=== PATIENT | male | born 1995 | race Caucasian/White ===

== ENCOUNTER 2016-11-02 07:41 | Emergency (ER) | payer BC, OTHER ==
[~2016-11-02] VITALS: Ht 170.2 cm; Wt 73.4 kg
[2016-11-02 07:43] VITALS: TEMP 36.3; Ht 170.2 cm; Wt 73.4 kg
[2016-11-02] MEDS ORDERED: SODIUM CHLORIDE 0.9% 1000ML 1,000 ML IV STA (08:22)
[2016-11-02 09:04] LABS: BASO % 0.8 %; BASO ABS # 0.04 K/uL (0-0.2); COMPLETE YES; EOS % 7.4 %; HEMATOCRIT 46.6 % (42-52); IG% 0.2 %; LYMPH % 49.7 %; LYMPH ABS # 2.54 K/uL (1.2-3.4); MEAN CELL VOLUME 85.3 fL (80-100); MEAN CORPUSCULAR HEMOGLOBIN 29.7 pg (25-34); MEAN CORPUSCULAR HGB CONC 34.8 g/dl (32-36); MEAN PLATELET VOLUME 11.9 fL (7.4-10.4); NEUT % 34.9 %; PLATELET COUNT 173 K/uL (130-400); RED BLOOD COUNT 5.46 M/uL (4.7-6.1); WHITE BLOOD COUNT 5.11 K/uL (4.8-10.8)
[2016-11-02 09:21] LABS: BUN/CREATININE RATIO 21.7 (10-20); CALCIUM 8.8 mg/dl (8.5-10.1); CREATININE 0.88 mg/dl (0.60-1.40)
[2016-11-02 10:33] LABS: MANUAL MICROSCOPIC REQUIRED? NO; REVIEW REQ? NO; URINE APPEARANCE CLEAR (CLEAR); URINE BILIRUBIN NEG (NEG); URINE COLOR YELLOW; URINE NITRITE NEG (NEG); URINE SPECIFIC GRAVITY 1.021 (1.000-1.030); UROBILINOGEN NEG (NEG)
--- NOTE | 2016-11-02 10:58 | DIAGNOSTIC IMAGING REPORT ---
KUB CLINICAL HISTORY: Dysuria. FINDINGS: 2 AP abdominal radiographs are obtained. No prior studies are available for comparison at the time of dictation. There is a nonobstructed abdominal bowel gas pattern. Moderate colonic fecal retention is observed. There is no radiographic evidence of nephrolithiasis. Small phleboliths are seen in the left hemipelvis. The bony structures appear intact. IMPRESSION: 1. There is no radiographic evidence of nephrolithiasis. 2. Nonobstructed abdominal bowel gas pattern. Electronically signed by: Steve Araujo M.D. 11/02/2016 10:56 AM Dictated Date/Time: 11/02/2016 10:55 AM
--- NOTE | 2016-11-02 11:24 | DIAGNOSTIC IMAGING REPORT ---
ULTRASOUND KIDNEYS AND BLADDER CLINICAL HISTORY: Dysuria. COMPARISON STUDY: KUB dated 11/02/2016. TECHNIQUE: Real-time, grayscale, and color flow sonography of the kidneys and bladder is performed. Images are reviewed in the transverse and longitudinal planes. FINDINGS: Kidneys: The kidneys are normal in size and echotexture. The right kidney measures 11.2 x 5.0 x 6.4 cm and the left kidney measures 10.4 x 5.9 x 6.1 cm. There is no hydronephrosis. No shadowing renal calculi are identified. There is no sonographic evidence of contour deforming renal mass lesion. No perinephric fluid is identified. Bladder: The partially decompressed bladder is normal as visualized. A left ureteral jet was seen. IMPRESSION: Unremarkable sonographic assessment of the kidneys and bladder. Electronically signed by: Steve Araujo M.D. 11/02/2016 11:21 AM Dictated Date/Time: 11/02/2016 11:20 AM
[2016-11-02 11:28] VITALS: BP 109/66; PULSE 61; O2SAT 100
--- NOTE | 2016-11-02 11:54 | EMERGENCY ROOM VISIT NOTE ---
ED Visit Note First contact with patient: 07:51 CHIEF COMPLAINT: Burning on urination times one week HISTORY OF PRESENT ILLNESS: Patient is a 21-year-old white male who presents the emergency department for evaluation of burning on urination times one week. He has a remote history of kidney stones, but states that this does not feel similar. He states that he feels like he is "trying to push out a kidney stone. " He notes a sensation of pressure and burning in his urethra, noted more toward the end of his stream. He has subjectively noted that his urine looks cloudy, but denies any hematuria. No upper abdominal pain flank pain, nausea or vomiting. He denies any penile discharge. No penile pain, no testicular pain or swelling. He reports that he is in a monogamous relationship with one female partner. They do not use any barrier methods for protection. He does not feel that he has had at risk for any sexually transmitted infections. He has a remote history of epididymitis. He denies any pain at the present time. No fever or chills. REVIEW OF SYSTEMS: Review of systems as per HPI. All other systems reviewed were negative. At least 6 systems reviewed. PMH: Electronic medical records are reviewed and summarized as above/below. See Problem List. SOCIAL HISTORY: Patient lives at home. Employed. Uses chewing tobacco. PHYSICAL EXAM: Vital Signs: Reviewed Nurse's notes. CONSTITUTIONAL: Patient is a well-appearing 21-year-old white male who is awake and alert and in no acute distress. EYES: Pupils equal, round, reactive to light and accommodation. EOMs intact without nystagmus. Sclera are anicteric. ENT: Tympanic membranes intact, with normal landmarks. External canals are clear. Oral and nasopharynx are clear. Mucous membranes are moist, no lesions , tongue and gums appear normal. NECK: No bruits auscultated. Supple without lymphadenopathy. No thyromegaly. No meningeal signs. Full active range of motion without discomfort. CARDIOVASCULAR: Regular rate and rhythm, with normal S1 and S2, no murmur or gallop or rub is heard. No carotid bruits auscultated. No JVD. Peripheral pulses easily palpable. RESPIRATORY: Breath sounds equal and clear to auscultation without wheezes, rales, or rhonchi heard. Full and equal chest expansion without accessory muscle use or retractions. ABDOMEN: Bowel sounds are present. Abdomen is soft, nontender and nondistended. No guarding, rebound or rigidity. : No penile or scrotal erythema, rashes or lesions noted. Penis is nontender to palpation. No discharge noted. Testicles are nontender without palpable masses. INTEGUMENTARY: No lesions or rash, normal skin turgor. LYMPH: No lymphadenopathy. EMERGENCY DEPARTMENT COURSE: The patient was seen and assessed as above. His old records are reviewed. IV access was obtained and he was hydrated with normal saline solution. CBC, BMP and urinalysis were collected. Urethral swab for Chlamydia and gonorrhea was also obtained. Laboratory studies revealed a normal white count and H&H. Electrolytes and renal functions are without significant abnormality. Urinalysis only noted trace leukocyte esterase intend to 30 white blood cells. No bacteria. No nitrates or blood. KUB was obtained and did not demonstrate any stone or bowel obstruction. Retroperitoneal ultrasound did not demonstrate any hydronephrosis or shadowing calculi. Patient presents to the emergency department for evaluation of a sensation of dysuria, which he describes as a feeling of a urethral stone. His urinalysis is fairly benign with trace leuk esterase and white blood cells noted. It is not overly indicative of a urethritis, cystitis or UTI. His exam is not consistent with renal colic. exam did not demonstrate any abnormalities, although epididymitis, orchitis and testicular torsion were all considered. He does not consider himself high risk for an STI, however a swab for Chlamydia/ gonorrhea was obtained and is pending. Differential diagnoses also entertained included a passed stone and a urethral stricture. Asthmatic are held pending the results of his vomit. He was educated on the worrisome signs or symptoms for which she should return to the emergency department. He was advised to increase his clear fluid intake and to follow up with his PCP or urology for further care and management. KUB CLINICAL HISTORY: Dysuria. FINDINGS: 2 AP abdominal radiographs are obtained. No prior studies are available for comparison at the time of dictation. There is a nonobstructed abdominal bowel gas pattern. Moderate colonic fecal retention is observed. There is no radiographic evidence of nephrolithiasis. Small phleboliths are seen in the left hemipelvis. The bony structures appear intact. IMPRESSION: 1. There is no radiographic evidence of nephrolithiasis. 2. Nonobstructed abdominal bowel gas pattern. ULTRASOUND KIDNEYS AND BLADDER CLINICAL HISTORY: Dysuria. COMPARISON STUDY: KUB dated 11/02/2016. TECHNIQUE: Real-time, grayscale, and color flow sonography of the kidneys and bladder is performed. Images are reviewed in the transverse and longitudinal planes. FINDINGS: Kidneys: The kidneys are normal in size and echotexture. The right kidney measures 11.2 x 5.0 x 6.4 cm and the left kidney measures 10.4 x 5.9 x 6.1 cm. There is no hydronephrosis. No shadowing renal calculi are identified. There is no sonographic evidence of contour deforming renal mass lesion. No perinephric fluid is identified. Bladder: The partially decompressed bladder is normal as visualized. A left ureteral jet was seen. IMPRESSION: Unremarkable sonographic assessment of the kidneys and bladder. Problem List Medical Problems: (1) Concussion Status: Resolved (2) Facial contusion Status: Resolved (3) Injury of jaw Status: Resolved (4) Kidney stone Status: Resolved (5) Left knee pain Status: Resolved (6) Left knee pain Status: Resolved (7) Tonsillitis Status: Resolved Surgical Problems: (1) No significant past surgical history Status: Chronic Current/Historical Medications No Active Prescriptions or Reported Meds Allergies Coded Allergies: Cephalexin (Unverified Allergy, Mild, RASH, 11/02/16) Vital Signs Date Time Temp Pulse Resp B/P Pulse Ox O2 Delivery O2 Flow Rate FiO2 11/02/16 11:28 61 18 109/66 100 Room Air 11/02/16 09:32 51 18 117/60 100 Room Air 11/02/16 07:43 36.3 50 16 119/79 97 Room Air Laboratory Results 11/02/16 08:45 Red Blood Count 5.46, Mean Corpuscular Volume 85.3, Mean Corpuscular Hemoglobin 29.7, Mean Corpuscular Hemoglobin Concent 34.8, Mean Platelet Volume 11.9, Neutrophils (%) (Auto) 34.9, Lymphocytes (%) (Auto) 49.7, Monocytes (%) (Auto) 7.0, Eosinophils (%) (Auto) 7.4, Basophils (%) (Auto) 0.8, Neutrophils # (Auto) 1.78, Lymphocytes # (Auto) 2.54, Monocytes # (Auto) 0.36, Eosinophils # (Auto) 0.38, Basophils # (Auto) 0.04 11/02/16 08:45 Test 11/02/16 08:15 11/02/16 08:45 11/02/16 09:50 White Blood Count 5.11 K/uL (4.8-10.8) Red Blood Count 5.46 M/uL (4.7-6.1) Hemoglobin 16.2 g/dL (14.0-18.0) Hematocrit 46.6 % (42-52) Mean Corpuscular Volume 85.3 fL (80-100) Mean Corpuscular Hemoglobin 29.7 pg (25-34) Mean Corpuscular Hemoglobin Concent 34.8 g/dl (32-36) Platelet Count 173 K/uL (130-400) Mean Platelet Volume 11.9 fL (7.4-10.4) Neutrophils (%) (Auto) 34.9 % Lymphocytes (%) (Auto) 49.7 % Monocytes (%) (Auto) 7.0 % Eosinophils (%) (Auto) 7.4 % Basophils (%) (Auto) 0.8 % Neutrophils # (Auto) 1.78 K/uL (1.4-6.5) Lymphocytes # (Auto) 2.54 K/uL (1.2-3.4) Monocytes # (Auto) 0.36 K/uL (0.11-0.59) Eosinophils # (Auto) 0.38 K/uL (0-0.5) Basophils # (Auto) 0.04 K/uL (0-0.2) RDW Standard Deviation 39.0 fL (36.4-46.3) RDW Coefficient of Variation 12.5 % (11.5-14.5) Immature Granulocyte % (Auto) 0.2 % Immature Granulocyte # (Auto) 0.01 K/uL (0.00-0.02) Anion Gap 8.0 mmol/L (3-11) Est Creatinine Clear Calc Drug Dose 123.1 ml/min Estimated GFR () 141.3 Estimated GFR (Non- 121.9 BUN/Creatinine Ratio 21.7 (10-20) Calcium Level 8.8 mg/dl (8.5-10.1) Urine Color YELLOW Urine Appearance CLEAR (CLEAR) Urine pH 5.0 (4.5-7.5) Urine Specific [place] 1.021 (1.000-1.030) Urine Protein NEG (NEG) Urine Glucose (UA) NEG (NEG) Urine Ketones NEG (NEG) Urine Occult Blood NEG (NEG) Urine Nitrite NEG (NEG) Urine Bilirubin NEG (NEG) Urine Urobilinogen NEG (NEG) Urine Leukocyte Esterase TRACE (NEG) Urine WBC (Auto) 10-30 /hpf (0-5) Urine RBC (Auto) 0-4 /hpf (0-4) Urine Hyaline Casts (Auto) 1-5 /lpf (0-5) Urine Epithelial Cells (Auto) 10-20 /lpf (0-5) Urine Bacteria (Auto) NEG (NEG) Medications Administered Medications (Trade) Dose Ordered Sig/Mela Route Start Time Stop Time Status Last Admin Dose Admin Sodium Chloride (Nss 1000ml) 1,000 ml @ 999 mls/hr Q1H1M STAT IV 11/02/16 08:22 11/02/16 09:22 DC 11/02/16 08:51 999 MLS/HR Departure Information Impression Primary Impression: Dysuria Prescriptions No Active Prescriptions or Reported Meds Referrals No Doctor, Assigned (PCP) Patient Instructions A Signature Page, [facility] Additional Instructions Ibuprofen(Motrin, Advil): may be used for fever or pain. Use 600mg every six hours as needed. Take with food. Avoid using more than 2400mg in a 24 hour period. Do not use 2400mg per day for more than three consecutive days without physician direction. Prolonged inappropriate use can lead to stomach upset or ulcers. This is available over the counter and typically comes in 200mg tablets. (AND/OR) Acetaminophen(Tylenol): may be used for fever or pain. Use 1000mg every eight hours as needed. Avoid using more than 3000mg in a 24 hour period. This is available over the counter. Rest and drink plenty of fluids. Continue current medications. Return to the ER immediately for worsening or persistent abdominal pain, vomiting, fevers, back or flank pain, worsening of your condition, or as needed. Follow up with your primary physician within 2-3 days for a recheck of the current condition
[2016-11-05 12:35] LABS: CHLAMYDIA TRACH RNA*** DETECTED (NOT DETECTED); GC (NEIS GONORRHOEAE)RNA** NOT DETECTED (NOT DETECTED)
--- NOTE | 2016-11-06 19:54 | Pharmacy Progress Note ---
ED Pharmacist Culture FollowUp Date of Service: Nov 06, 2016. Patient's chlamydia trachomatis RNA tested positive. He was seen in the ER on with dysuria. He did not receive treatment for STI while here. I spoke with Dr Bueno and discussed lab result. Patient is to begin Doxycycline 100mg PO BID x 7 days. He is to notify his girlfriend of his test results and have her visit her PCP to be treated for chlamydia infection. Patient was counseled to complete the full course of therapy and to abstain from sexually activity during abx therapy and for 1 week afterwards. He was advised to notify all sex partners he has had in the last 2 months. I recommended he return fro persistent or recurrent symptoms. I also recommended he be retested for chlamydia in 3-6months to confirm cure. Rx was called to [facility] ([phone])
== END 2016-11-02 12:03 | disposition home or self-care (01) ==
LOC: C.EDB 07:43 → C.EDA 12:03
DX: R30.0 Dysuria (principal); F17.220 Nicotine dependence, chewing tobacco, uncomplicated

== ENCOUNTER → 2017-10-28 | Outpatient (CLI) | payer OTHER ==
--- NOTE | 2017-11-01 10:37 | CODING QUERY NO DIAGNOSIS ---
: 1995 TREATMENT RENDERED WITHOUT A DIAGNOSIS To promote full compliance with coding requirements relating to patient care, physician participation is requested in all cases of tubular products fabricator uncertainty. Please assist us with providing a diagnosis/symptom for the test(s) below: A diagnosis/symptom was not documented on your Order. A valid diagnosis/symptom is required to bill all insurances. Please remember that we are unable to code a diagnosis of rule out, probable, possible, questionable, or suspected. Tests that require a diagnosis: DOS: 10/28/17 * BAILEY LEVEL DIAGNOSIS: Provider Signature: Date: Thank you Yamile [facility] Information Management Once completed, please kindly fax back to [phone] For questions please call [phone]
== END | disposition home or self-care (01) ==
LOC: C.LAB 01:47
DX: Z02.83 Encounter for blood-alcohol and blood-drug test (principal)